=== PATIENT | female | born 1955 | race Caucasian/White ===

== ENCOUNTER 2016-09-29 07:52 | Day surgery (SDC) | payer OTHER ==
[2016-09-21 09:58] VITALS: BMI 27.6
[2016-09-29] MEDS ORDERED: Lidocaine 1% Inj (20ml) ONE (09:27)
[2016-09-29] MEDS ORDERED: ceFAZolin IV 1 gm in Dextrose 0 GM/0 ML BAG IVPB ONE (09:27)
[2016-09-29] MEDS ORDERED: Bupivacaine/Epi 0.25%-1:200,000 10 ml PF inj IJ ONE (09:27)
[2016-09-29] MEDS ORDERED: Midazolam 2 MG/2 ML VIAL ONE (10:32)
[2016-09-29] MEDS ORDERED: Propofol 10 mg/ml Inj (20 ML) ONE (10:32)
[2016-09-29] MEDS ORDERED: ceFAZolin IV 2 gm in Dextrose 1 GM/50 ML BAG IVPB ONE (10:35)
--- NOTE | 2016-09-29 11:03 | PCM.SURG1 ---
Surgeon's Initial Post Op Note - Surgeon's Notes Surgeon: Dr Lea Service Aide: Dr Ledezma PGY1 Type of Anesthesia: General LMA Pre-Operative Diagnosis: colon cancer Operative Findings: see report Post-Operative Diagnosis: port-a-cath removal Operation Performed: port-a-cath removal Specimen/Specimens Removed: port Estimated Blood Loss: EBL {In ML}: 5 Blood Products Given: N/A Drains Used: No Drains Post-Op Condition: Good Date of Surgery/Procedure: 09/29/16 Time of Surgery/Procedure: 11:03
[2016-09-29] MEDS ORDERED: Oxycodone/Acetaminophen 5/325 mg Tab PO PRN (11:04)
[2016-09-29] MEDS ORDERED: HYDROmorphone 0.5 mg/0.5 ml ISec IVP PRN (11:12)
[2016-09-29 11:26] VITALS: TEMP 97.5
[2016-09-29 11:28] VITALS: RESP 16
[2016-09-29 12:11] VITALS: O2SAT 100
[2016-09-29 12:52] VITALS: BP 105/67; PULSE 62
--- NOTE | 2016-09-29 22:42 | OP ---
PROCEDURE DATE: 09/29/2016 PREOPERATIVE DIAGNOSIS: Colon cancer, status post colectomy and the completion of the chemotherapy. POSTOPERATIVE DIAGNOSIS: Colon cancer, status post colectomy and the completion of the chemotherapy. PROCEDURES DONE: 1. Port-A-Cath removal. 2. Capsulectomy. SURGEON: Jeffrey Lea MD ORTHODONTIC LAB TECHNICIAN: Nolan Knight, PGY 1 ANESTHESIA: Local anesthesia plus sedation. ESTIMATED BLOOD LOSS: Around 10 mL. DRAINS: None. PATHOLOGY: The Port-A-Cath was sent for pathology and part of the capsule was also sent for pathology. COMPLICATIONS: None. INTRAOPERATIVE FINDINGS: The patient had Port-A-Cath in the left IJ. INTRAOPERATIVE STEPS: This is a 60-year-old female who was diagnosed with colon cancer and after completion of the colectomy as well as chemotherapy, the patient was consented for the Port-A-Cath removal, brought to the OR, placed supine on the operating table. After induction of the sedation, the left chest was prepped and draped and the local anesthesia was injected and the incision was made on the previously made incision and subcutaneous dissection was done. The Port-A-Cath was excised from the capsule and it was removed Intact with the catheter and the capsule was also excised and it was sent to the table for the pathology. After proper hemostasis, the wound was closed in 2 layers, the subcutaneous with 2-0 Vicryl, skin with a 4-0 Monocryl and dry sterile dressing was applied. The patient tolerated the procedure well. Count of instruments and gauze was correct. There was no apparent complication. Jeffrey Lea MD cc: [id number] TT: 09/29/2016 22:41:24 jn MTDD
== END 2016-09-29 12:45 | disposition home or self-care (01) ==
LOC: C.SDS 07:52
PROVIDERS: ATTEND Surgery Surgical Critical Care
DX: Z45.2 Encounter for adjustment and management of vascular access device (principal); Z85.038 Personal history of other malignant neoplasm of large intestine
CPT/HCPCS: 36589; 88300; J0690; J2250; J2704; J3010